=== PATIENT | female | born 1985 | race Caucasian/White ===

== ENCOUNTER 2016-12-24 02:21 | Inpatient (IN) | payer BC ==
[2016-12-24] MEDS ORDERED: METHYLERGONOVINE 0.2 MG/ML 1 ML AMP IM PRN (03:42)
[2016-12-24] MEDS ORDERED: OXYTOCIN 10 UNIT/ML 1 ML VIAL IM PRN (03:42)
[2016-12-24] MEDS ORDERED: CARBOPROST TROMETHAMINE 250 MCG/ML 1 ML AMP IM PRN (03:42)
[2016-12-24] MEDS ORDERED: TERBUTALINE 1 MG/ML VIAL SQ PRN (03:42)
[2016-12-24] MEDS ORDERED: LIDOCAINE 1% (PF) 10 MG/ML (30 ML SDV) SQ PRN (03:42)
[2016-12-24] MEDS: LACTATED RINGERS 1,000 ML IV SCH ×3 (03:55→10:41)
[2016-12-24 04:19] LABS: Basophils % (A) 0 %; CH 29.8; CHCM 33.3; Eosinophils # (A) 0.1 k/uL (0-0.7); Eosinophils % (A) 1 %; HCT 40.8 % (34.0-46.0); HDW 2.67; HGB 13.2 gm/dL (11.4-16.0); Luc # (Auto) 0.09; Luc % (Auto) 1; Lymphocytes # (A) 1.6 k/uL (1.0-4.8); Lymphocytes % (A) 14 %; MCHC 32.3 g/dL (31.0-37.0); MCV 89.9 fL (80.0-100.0); Mean Platelet Volume 7.6; Monocytes # (A) 0.9 k/uL (0-1.0); Monocytes % (A) 7 %; Neutrophils % (A) 77 %; RBC 4.54 m/uL (3.80-5.40); RDW 15.2 % (11.5-15.5); WBC 11.8 k/uL (3.8-10.6); WBC (Perox) 12.57
[2016-12-24] MEDS ORDERED: fentaNYL (PF) 50 MCG/ML 5 ML AMP ONE (04:57)
[2016-12-24] MEDS ORDERED: SODIUM CHLORIDE 0.9% 100 ML BAG ONE (04:57)
[2016-12-24] MEDS ORDERED: BUPIVACAINE (PF) 0.25% 30 ML VIAL ONE (04:57)
[2016-12-24 05:56] VITALS: BMI 31.3
--- NOTE | 2016-12-24 10:23 | P.HPOB ---
History of Present Illness H&P Date: 12/24/16 Chief Complaint: 40 and one sevenths weeks, early active labor The patient is a 31-year-old 1 para 0 admitted at 40 and one sevenths weeks as established by last menstrual period and confirmed by 19 week ultrasound. She is admitted in early active labor with all signs reassuring. Her has been entirely uncomplicated and group B strep status is negative. Obstetrical history: 1 para 0 with current statistics listed in history present illness. EDC of 12/23/2016 was established by last menstrual period and confirmed by 19 week ultrasound. Laboratory workup demonstrates a blood type of A+ with a negative antibody screen. Rubella status is immune. The remainder of her laboratory workup is within normal limits. One hour Glucola is normal and group B strep status is negative. Gynecologic history: Unremarkable with no history of any infections to include STDs. Review of Systems Review of systems is confined to history of present illness. Past Medical History Past Medical History: No Reported History History of Any Multi-Drug Resistant Organisms: None Reported Past Surgical History: No Surgical Hx Reported Past Anesthesia/Blood Transfusion Reactions: No Reported Reaction Past Psychological History: No Psychological Hx Reported Smoking Status: Never smoker Past Alcohol Use History: None Reported Past Drug Use History: None Reported - Past Family History Father Family Medical History: Diabetes Mellitus Medications and Allergies Home Medications Medication Instructions Recorded Confirmed Type No Known Home Medications [No 12/24/16 12/24/16 History Known Home Medications] Allergies Allergy/AdvReac Type Severity Reaction Status Date / Time No Known Allergies Allergy Verified 12/24/16 02:23 Exam - Vital Signs Vital signs: Vital Signs Temp Pulse Resp BP Pulse Ox 12/24/16 03:24 97.6 F 90 18 134/87 98 Intake and Output 12/23/16 12/24/16 12/24/16 22:59 06:59 14:59 Other: # Voids 1 Weight 87.997 kg In general, this is a well-developed, well-nourished white female in no acute distress. Her heart has a regular rhythm and rate without murmur. Her lungs are clear to auscultation bilaterally in all burdick. Her abdomen is gravid, nondistended, has normal active bowel sounds, is soft, nontender, and without any palpable masses aside from the uterine fundus. Her extremities are without any cyanosis, clubbing, or edema and are nontender to palpation bilaterally. Digital cervical examination demonstrates her cervix to be approximate 6-7 cm dilated, 80% effaced, with the vertex in presentation at -2 station. Artificial rupture of membranes is carried out demonstrating clear fluid. Results Result Diagrams: 12/24/16 04:00 Abnormal Lab Results - Last 24 Hours (Table) 12/24/16 Range/Units 04:00 WBC 11.8 H (3.8-10.6) k/uL Neutrophils # 9.0 H (1.3-7.7) k/uL Assessment and Plan (1) Active labor at term Current Visit: Yes Status: Acute Code(s): [id number] - SNOMED Code(s): 50931335 Plan: The patient is admitted for active management of labor. An epidural catheter has been placed for analgesia and she has undergone artificial rupture of membranes. Should she fail to make any significant progress in the next 1-2 hours, Pitocin augmentation will be added. She otherwise will have continued close maternal and surveillance and expectant management will be practiced.
[2016-12-24] MEDS ORDERED: OXYTOCIN 20 UNITS/1000 ML NS 1,000 ML IV SCH ×2 (11:45→16:15)
[2016-12-24] MEDS ORDERED: BUPIVACAINE (PF) 0.25% 25 ML, fentaNYL (PF) 200 MCG in SODIUM CHLORIDE 0.9% 71 ML EPIDURAL ONE (14:12)
[2016-12-24] MEDS ORDERED: BENZOCAINE/MENTHOL SPRAY 1 GM/SPRAY AEROSOL TOPICAL PRN (16:10)
[2016-12-24] MEDS ORDERED: Acetaminophen-Codeine 300-30mg TAB PO PRN ×2 (16:10)
[2016-12-24] MEDS ORDERED: HYDROCORTISONE 2.5% RECTAL CREAM 30 GM TUBE RECTAL PRN (16:10)
[2016-12-24] MEDS ORDERED: WITCH HAZEL 1 EACH MED..PAD TOPICAL PRN (16:10)
[2016-12-24] MEDS ORDERED: LANOLIN CREAM 5 GM TUBE TOPICAL PRN (16:10)
[2016-12-24] MEDS ORDERED: diphenhydrAMINE 50 MG CAP PO PRN (16:10)
[2016-12-24] MEDS ORDERED: ZOLPIDEM 5 MG TAB PO PRN (16:10)
[2016-12-24] MEDS ORDERED: diphenhydrAMINE 25 MG CAP PO PRN (16:10)
[2016-12-24] MEDS ORDERED: diphenhydrAMINE 50 MG/ML 1 ML VIAL IVP PRN ×2 (16:10)
[2016-12-24] MEDS ORDERED: SIMETHICONE 80 MG CHEWABLE PO PRN (16:10)
--- NOTE | 2016-12-24 16:14 | P.PROBDLV ---
Vaginal Delivery Note - . Vaginal Delivery Note: The patient is a 31-year-old 1 para 0 admitted at 40 and one sevenths weeks by good dating parameters. She is admitted in early labor with all signs reassuring. Her has been uncomplicated and group B strep status is negative. On labor and delivery, she labored well on her own to the active phase of labor at which time an epidural catheter was placed for analgesia. She underwent artificial rupture of membranes and then continued to labor steadily until she reached complete. She then pushed for approximately 2 hours to a normal spontaneous vaginal delivery of a viable 9 lbs. 3 oz. AB boy with Apgars of 9 at 1 minute and 9 at 5 minutes delivered in the direct occiput anterior position. The placenta was delivered spontaneously, intact, and grossly normal with a grossly normal, centrally inserted three-vessel cord. A small midline perineal episiotomy had been cut for delivery as it was clear she was going to tear and there was concern for the tear being anteriorly as well as the perineal body being fairly long. Following delivery, inspection of the perineum demonstrated that the anterior capsule of the external anal sphincter had split creating a partial third-degree laceration. The sphincter was repaired with 2 interrupted lokjyj-he-nmewo stitches of 2-0 Vicryl. The remainder of the laceration was repaired in standard fashion using 3-0 chromic catgut without difficulty. Estimated blood loss for the case is approximately 300 mL. There were no complications. All sponge, instrument, and needle counts were correct. There were no complications aside from the partial third- degree extension. Both mother and are resting comfortably in recovery.
[2016-12-24] MEDS: IBUPROFEN 600 MG TAB PO PRN (16:42)
[2016-12-24] MEDS: SENNOSIDES-DOCUSATE SODIUM 1 EACH TAB PO SCH (21:22)
[2016-12-25] MEDS: IBUPROFEN 600 MG TAB PO PRN ×2 (03:31→12:22)
[2016-12-25] MEDS: SENNOSIDES-DOCUSATE SODIUM 1 EACH TAB PO SCH (08:07)
[2016-12-25] MEDS: ACETAMINOPHEN TAB 325 MG TAB PO PRN ×2 (08:28→15:05)
[2016-12-25 08:51] VITALS: RESP 18
--- NOTE | 2016-12-25 11:08 | P.DS ---
Providers Date of admission: 12/24/16 03:40 Expected date of discharge: 12/25/16 Attending physician: Jaime Sarmiento Primary care physician: Stated None - Discharge Diagnosis(es) (1) Active labor at term Current Visit: Yes Status: Acute (2) Normal spontaneous vaginal delivery Current Visit: Yes Status: Acute Hospital Course: The patient is a 31-year-old 1 para 0 admitted at 40 and one sevenths weeks by good dating parameters. She is admitted in early active labor with all signs reassuring. Her was uncomplicated and group B strep status is negative. She made progress through the latent phase of labor and had an epidural placed for analgesia. She underwent artificial rupture of membranes and continued to make steady progress through the active phase ultimately reaching complete and 0 station. She pushed over the course of approximately 2 hours to a normal spontaneous vaginal delivery of a viable 9 lbs. 3 oz. baby boy with Apgars of 9 at 1 minute and 9 at 5 minutes. She did have a partial third-degree laceration which was repaired in standard fashion. Her course was unremarkable with vital signs remaining stable and her temperature was afebrile throughout. She was deemed stable for discharge by day #1 and was discharged home to follow-up in the office in 6 weeks' time routinely. Discharge instructions included calling for any significantly increased bleeding or foul-smelling lochia, significantly increased fever or abdominal pain, perineal complaints, breast complaints, or anything else that concerned her. She was additionally instructed to have nothing in vagina for at least 6 weeks time to include intercourse. She understood her instructions and agrees to follow up as noted above. Discharge medications included only [id number]-pcf-[id number] analgesic pain medications. She has chosen not to breast- feed. Maternal blood type is A+ and rubella status is immune. Procedures: #1. Epidural analgesia #2. Artificial rupture of membranes #3. Pitocin augmentation #4. Normal spontaneous vaginal delivery #5. Repair of partial third-degree laceration Patient Condition at Discharge: Good Plan - Discharge Summary New Discharge Prescriptions: No Action No Known Home Medications [No Known Home Medications] Discharge Medication List No Known Home Medications [No Known Home Medications] 12/24/16 [History] Follow up Appointment(s)/Referral(s): Jaime Sarmiento MD [STAFF PHYSICIAN] - 6 Weeks Discharge Disposition: HOME SELF-CARE
[2016-12-25 15:23] VITALS: BP 108/57; PULSE 76; TEMP 97.4
== END 2016-12-25 16:27 | disposition home or self-care (01) | DRG 775 ==
LOC: FBPOP 02:21 → 4FBP 03:40
PROVIDERS: ADMIT Obstetrics & Gynecology; ATTEND Obstetrics & Gynecology
PROC: 10E0XZZ Delivery of Products of Conception, External Approach (ICD-10-PCS; principal; 2016-12-24)
PROC: 0DQR0ZZ Repair Anal Sphincter, Open Approach (ICD-10-PCS; 2016-12-24)
PROC: 10907ZC Drainage of Amniotic Fluid, Therapeutic from Products of Conception, Via Natural or Artificial Opening (ICD-10-PCS; 2016-12-24)
PROC: 3E033VJ Introduction of Other Hormone into Peripheral Vein, Percutaneous Approach (ICD-10-PCS; 2016-12-24)
PROC: 3E0R3NZ Introduction of Analgesics, Hypnotics, Sedatives into Spinal Canal, Percutaneous Approach (ICD-10-PCS; 2016-12-24)
PROC: 00HU33Z Insertion of Infusion Device into Spinal Canal, Percutaneous Approach (ICD-10-PCS; 2016-12-24)
DX: O48.0 Post-term pregnancy (principal); O70.20 Third degree perineal laceration during delivery, unspecified; K21.9 Gastro-esophageal reflux disease without esophagitis; O99.52 Diseases of the respiratory system complicating childbirth; Z37.0 Single live birth; Z3A.40 40 weeks gestation of pregnancy; Z83.3 Family history of diabetes mellitus
CPT/HCPCS: 59025; 85025; 88307; 99213

== ENCOUNTER → 2017-01-23 | Outpatient (CLI) | payer BC ==
--- NOTE | 2017-01-23 12:35 | CT ---
EXAMINATION TYPE: CT sinus wo con DATE OF EXAM: 01/23/2017 COMPARISON: 06/27/2014 HISTORY: Facial pain and pressure CT DLP: 569 mGycm. Automated Exposure Control for Dose Reduction was Utilized. TECHNIQUE: CT scan of the sinuses is performed without contrast, axial images are obtained, coronal r eformatted images are also reviewed. FINDINGS: The paranasal sinuses including the frontal, ethmoid, sphenoid, and maxillary sinuses bila terally are well-aerated without abnormal opacification. The ostiomeatal complex is patent bilateral ly on the coronal images. Visualized portion of mastoid air cells show no abnormal opacification. The globes are intact bilate rally. Nasal septal deviation noted. IMPRESSION: The sinuses are clear and the ostiomeatal complex is patent bilaterally.
== END | disposition home or self-care (01) ==
LOC: RADCTMAIN 11:56
PROVIDERS: ATTEND Otolaryngology
DX: J32.9 Chronic sinusitis, unspecified (principal)
CPT/HCPCS: 70486

== ENCOUNTER → 2020-07-08 | Outpatient (CLI) | payer BC ==
[2020-07-08 09:05] LABS: Basophils # (A) 0.1 k/uL (0-0.2); Basophils % (A) 1 %; Eosinophils # (A) 0.1 k/uL (0-0.7); Eosinophils % (A) 2 %; HCT 41.3 % (34.0-46.0); HGB 13.7 gm/dL (11.4-16.0); Lymphocytes # (A) 1.6 k/uL (1.0-4.8); Lymphocytes % (A) 25 %; MCH 28.8 pg (25.0-35.0); MCHC 33.2 g/dL (31.0-37.0); MCV 86.9 fL (80.0-100.0); Mean Platelet Volume 6.6; Monocytes # (A) 0.5 k/uL (0-1.0); Monocytes % (A) 8 %; Neutrophils # (A) 4.2 k/uL (1.3-7.7); Neutrophils % (A) 62 %; Platelet Count 327 k/uL (150-450); RBC 4.75 m/uL (3.80-5.40); RDW 12.7 % (11.5-15.5); WBC 6.7 k/uL (3.8-10.6)
== END | disposition home or self-care (01) ==
LOC: LABPAT 07:29
PROVIDERS: ATTEND Obstetrics & Gynecology
DX: Z01.812 Encounter for preprocedural laboratory examination (principal)
CPT/HCPCS: 36415; 85025

== ENCOUNTER 2020-07-20 09:13 | Day surgery (SDC) | payer BC ==
[2020-07-15 14:34] VITALS: BMI 26.6
--- NOTE | 2020-07-16 19:46 | HP ---
HISTORY AND PHYSICAL REASON FOR ADMISSION: Surgery scheduled on July 20, 2020. HISTORY OF PRESENT ILLNESS: The patient is a 35-year-old 1, para 1-0-1, who presents to the office requesting permanent sterilization with bilateral Filshie clips by laparoscopy. She is currently using an oral contraceptive pill and has decided that she would prefer permanent sterilization. She was given options and had a discussion regarding all the other long-term reversible options but instead requests permanent sterilization as above. PAST MEDICAL HISTORY: Significant only for carpal tunnel syndrome. PAST SURGICAL HISTORY: Significant for a cholecystectomy, a LEEP procedure and wisdom teeth extraction. There was no anesthetic concerns. OBSTETRICAL/PHYSICIAN GYNECOLOGIST HISTORY: 1, para 1-0-0-1 with 1 term vaginal delivery without complications. The current method of contraception is oral contraceptive pills. Gynecologic history is unremarkable, though she has had a LEEP procedure in the past for abnormal Pap smears. FAMILY HISTORY: Noncontributory. SOCIAL HISTORY: The patient is and works at the [employer]. She is a nonsmoker and denies any significant alcohol or any other social concerns. CURRENT MEDICATIONS: Include only Ocella oral contraceptive pill daily. ALLERGIES: No known drug allergies. REVIEW OF SYSTEMS: Confined to history of present illness. PHYSICAL EXAMINATION: Vital signs are stable. The patient is afebrile. In general, this is a well-developed, well-nourished white female in no acute distress. Her heart has a regular rhythm and rate without murmur. Her lungs are clear to auscultation bilaterally in all burdick. Her abdomen is nondistended, has normoactive bowel sounds, soft, nontender, without any palpable masses, hepatosplenomegaly, or hernias. Her extremities are without any cyanosis, clubbing, or edema and are nontender to palpation bilaterally. Pelvic examination demonstrates normal external genitalia and BUS with normal vaginal mucosa and cervix. There is no cervical motion tenderness. The uterus is 4-5 weeks in size, mid plane, mobile, nontender, normal in shape. The adnexa are normal and nontender without mass bilaterally. ASSESSMENT AND PLAN: Undesired fertility. The patient has requested laparoscopic bilateral tubal occlusion with Filshie clips. She does understand that there are other long-term reversible methods available but prefers to proceed as above. The risks and complications of the procedure have been thoroughly discussed including the risks for bleeding, bleeding requiring transfusion, infection, and injury to local structures to include the bowel, bladder, and ureters. She has understood all this and agreed to proceed. She additionally understands the permanent nature of the procedure as well as the risk of ectopic should it fail. Surgery scheduled on 07/20/2020. GUALBERTO / SYLVIA: [id number] /
[~2020-07-20 09:13] MED LIST: DEXAMETHASONE SOD PHOSPHATE 4 MG/ML 1 ML VIAL IV ONE; LACTATED RINGERS 1,000 ML IV SCH; LIDOCAINE 1% (10MG/ML) FOR IV START INTRADERMA PRN; MIDAZOLAM 2 MG/2 ML VIAL IV PRN; ONDANSETRON 4 MG/2 ML VIAL IVP ONE; Pre Op ABX Message 1 EACH MISC MISCELLANE ONE
[2020-07-20] MEDS ORDERED: LACTATED RINGERS 1,000 ML IV ONE ×2 (09:43)
[2020-07-20] MEDS ORDERED: fentaNYL (PF) 50 MCG/ML 2 ML AMP ONE (10:52)
[2020-07-20] MEDS ORDERED: SUCCINYLCHOLINE CHLORIDE 100 MG/5 ML SYR IV ONE (10:52)
[2020-07-20] MEDS ORDERED: MIDAZOLAM 2 MG/2 ML VIAL ONE (10:52)
[2020-07-20] MEDS ORDERED: LIDOCAINE 1% INJ 10MG/ML (20 ML MDV) ONE (10:52)
[2020-07-20] MEDS ORDERED: ROCURONIUM 10 MG/ML (5 ML VIAL) IV ONE (10:52)
[2020-07-20] MEDS ORDERED: GLYCOPYRROLATE 0.2 MG/ML 2 ML VIAL ONE (10:52)
[2020-07-20] MEDS ORDERED: PROPOFOL 10 MG/ML 20 ML VIAL IV ONE (10:52)
[2020-07-20] MEDS ORDERED: NEOSTIGMINE 1 MG/ML 10 ML VIAL ONE (10:52)
[2020-07-20] MEDS ORDERED: KETOROLAC 15 MG/ML 1 ML VIAL ONE (10:52)
[2020-07-20] MEDS ORDERED: BUPIVACAINE (PF) 0.5% 30 ML VIAL SQ ONE ×2 (11:17→11:33)
[2020-07-20] MEDS ORDERED: diphenhydrAMINE 50 MG/ML 1 ML VIAL IVP PRN (11:38)
[2020-07-20] MEDS ORDERED: METOCLOPRAMIDE 5 MG/ML 2 ML VIAL IVP PRN (11:38)
[2020-07-20] MEDS ORDERED: KETOROLAC 15 MG/ML 1 ML VIAL IVP PRN (11:38)
[2020-07-20] MEDS ORDERED: SIMETHICONE 80 MG CHEWABLE PO PRN (11:38)
[2020-07-20] MEDS ORDERED: ONDANSETRON 4 MG/2 ML VIAL IVP PRN (11:38)
[2020-07-20] MEDS ORDERED: Acetaminophen-Codeine 300-30mg TAB PO PRN ×2 (11:38)
[2020-07-20] MEDS ORDERED: LACTATED RINGERS 1,000 ML IV SCH (11:45)
--- NOTE | 2020-07-20 11:46 | P.OP ---
Date of Procedure: 07/20/20 Preoperative Diagnosis: #1. Undesired fertility Postoperative Diagnosis: Same Procedure(s) Performed: #1. Laparoscopic bilateral tubal occlusion with Filshie clips Anesthesia: SHERYL Surgeon: Jaime Sarmiento Estimated Blood Loss (ml): 5 IV fluids (ml): 500 Urine output (ml): 40 Pathology: none sent Condition: stable Disposition: PACU Operative Findings: Preoperative pelvic examination demonstrated a 4-5 week retroverted mobile n ormal shaped uterus with normal adnexa bilaterally. Intraoperatively, the uterus was noted to be normal and retroverted as previously noted at preoperative exam. The bilateral tubes and ovaries were entirely normal to inspection with likely a small left ovarian cyst present, possibly ovulatory. The small and large intestine as well as the appendix and liver were entirely normal to inspection. A Filshie clip was placed firmly across the isthmic portion of each fallopian tube. Description of Procedure: The patient was prepped and draped in usual fashion after general endotracheal anesthesia was administered by anesthesiologist. A speculum was placed in the anterior lip of cervix grasped with a signal 2 tenaculum allowing placement of an acorn cannula for manipulation. The bladder was draining approximate 40 mL of clear alee urine. Attention was then turned to the abdomen where a roughly 5 mm incision was made in a vertical fold of the umbilicus allowing insertion of a 5 mm optical trocar under direct vision station without difficulty. A pneumoperitoneum was established and the patient placed in Trendelenburg positioning. A site was selected in the midline approximately 4 cm above the pubic symphysis in the midline where it 8 mm incision was made in the transverse plane allowing insertion of an 8 mm optical trocar under direct vision station without difficulty. The blunt probe was utilized to sweep the bowel from the pelvis and the findings are as noted above. The probe was replaced with a Filshie clip applicator which was used to place a Filshie clip across the right fallopian tube approximately 2-3 cm from the cornu in the isthmic portion where was firmly affixed. The first attempt at placing on the left side failed to occlude the tube and the clip was removed with a grasper without difficulty. A new Filshie clip was then placed and affixed firmly across the entire thickness of the fallopian tube in similar position on the right side. The remainder of the abdomen was examined with the scope and the findings are as noted above. There was no apparent pathology. The entire pneumoperitoneum was evacuated through the 2 ports which were then removed. The skin incisions were closed with interrupted subcuticular stitches of 4-0 Vicryl followed by half-inch to her sugars placed with Mastisol. Each incision was infused with approximately 5 mL of half percent Marcaine without epinephrine. The instruments were then removed from her cervix. Approximate blood loss for the case was 5 mL or less. There were no complications. All sponge, instrument, and needle counts were correct. The patient tolerated the procedure well and proceeded to the recovery room in stable condition.
[2020-07-20] MEDS: HYDROmorphone 0.5 MG/0.5 ML SYRINGE IVP PRN ×2 (11:53→12:04)
[2020-07-20 12:01] VITALS: TEMP 96.8
[2020-07-20] MEDS ORDERED: SCOPOLAMINE 1.5MG/72HR PATCH TRANSDERM ONE (13:35)
[2020-07-20] MEDS ORDERED: METOCLOPRAMIDE 5 MG/ML 2 ML VIAL IVP ONE (14:42)
[2020-07-20 14:44] VITALS: RESP 16
[2020-07-20 15:26] VITALS: BP 99/64; PULSE 84
== END 2020-07-20 15:33 | disposition home or self-care (01) ==
LOC: OR 09:13
PROVIDERS: ATTEND Obstetrics & Gynecology
DX: Z30.2 Encounter for sterilization (principal); G56.00 Carpal tunnel syndrome, unspecified upper limb; Z79.3 Long term (current) use of hormonal contraceptives
CPT/HCPCS: 81025; 58671; J2250; J1100; J2710; J2765; J2405; J2001; J3010; J1885; J0330; J2704; J1170

== ENCOUNTER → 2023-03-17 | Outpatient (CLI) | payer BC ==
[2023-03-17 18:38] LABS: Basophils # (A) 0.06 X 10*3/uL (0.00-0.10); Basophils % (A) 0.9 %; Eosinophils % (A) 1.6 %; HCT 39.7 % (37.2-46.3); Lymphocytes # (A) 2.07 X 10*3/uL (0.90-5.00); Lymphocytes % (A) 32.3 %; MCH 28.7 pg (27.0-32.0); MCHC 32.7 g/dL (32.0-37.0); MCV 87.6 FL (80.0-97.0); Mean Platelet Volume 9.6 FL (9.5-12.2); Monocytes # (A) 0.51 X 10*3/uL (0.20-1.00); NRBC Per 100 WBC 0 X 10*3/uL (0.00-0.01); Neutrophils # (A) 3.64 X 10*3/uL (1.80-7.70); Neutrophils % (A) 56.9 %; Platelet Count 380 X 10*3/uL (140-440); RBC 4.53 X 10*6/uL (4.10-5.20); RDW 13.6 % (11.5-14.5)
[2023-03-20 12:17] LABS: Angiotensin-1 Converting Enz. 27 U/L (8-52)
[2023-03-20 15:30] LABS: C-ANCA <1:20 Titer (<1:20)
== END | disposition home or self-care (01) ==
LOC: LABWHC1 15:43
PROVIDERS: ATTEND Otolaryngology
DX: B99.9 Unspecified infectious disease (principal); R53.83 Other fatigue
CPT/HCPCS: 36415; 82164; 82306; 82784; 85025; 86038; 86255

== ENCOUNTER → 2023-08-07 | Outpatient (CLI) | payer BC ==
--- NOTE | 2023-08-08 10:48 | MM ---
Reason for Exam: Screening (asymptomatic). Patient History: Menarche at age 17. First Full-Term at age 31. Late child-bearing (after 30). Risk Values: Margarita 5 year model risk: 0.5%. NCI Lifetime model risk: 12.6%. Tissue Density: The breasts are heterogeneously dense, which may obscure small masses. Findings: Analyzed By CAD. There is no suspicious group of microcalcifications or new suspicious mass in either breast. Benign-appearing calcifications. Benign-appearing lymph node noted in the left breast upper outer quadrant. Overall Assessment: Benign, BI-RAD 2 Management: Screening Mammogram of both breasts in 1 year. . Patient should continue monthly self-breast exams. A clinical breast exam by your physician is recommended on an annual basis. This exam should not preclude additional follow-up of suspicious palpable abnormalities. Note on Margarita scores and lifetime risk: 1. A Margarita score greater than 3% is considered moderate risk. If this is the case, consider specialist referral to assess eligibility for a risk reducing agent. 2. If overall lifetime risk for the development of breast cancer is 20% or higher, the patient may qualify for future screening with alternating mammogram and breast MRI. Electronically signed and approved by: Priyank Styles M.D. Radiologis
== END | disposition home or self-care (01) ==
LOC: RADMAMWWP 06:57
PROVIDERS: ATTEND Obstetrics & Gynecology
DX: Z12.31 Encounter for screening mammogram for malignant neoplasm of breast (principal)
CPT/HCPCS: 77063; 77067

== ENCOUNTER → 2024-02-08 | Outpatient (CLI) | payer BC ==
--- NOTE | 2024-02-08 12:31 | CT ---
EXAMINATION TYPE: CT sinus wo con DATE OF EXAM: 02/08/2024 COMPARISON: 01/23/2017 CLINICAL INDICATION: Female, 38 years old with history of J01.21 ACUTE RECURRENT ETHMOIDAL SINUSITIS; PHH, ACUTE RECURRENT ETHMOIDAL SINUSITIS TECHNIQUE: CT scan of the sinuses is performed without contrast, axial images are obtained, coronal r eformatted images are also reviewed. CT DLP: 622.[address] CTDI: mGy Automated exposure control for dose reduction was used. FINDINGS: There is moderate mucosal thickening in the maxillary sinuses bilaterally. The remaining paranasal si nuses are well aerated. There are no air-fluid levels to suggest acute sinusitis. The right ostiomeatal complex is patent. The left ostiomeatal complex is obstructed by mucosal inflam mation. The intraorbital contents appear normal. The nasal cavity is intact. The mastoid air cells and middle ear cavities are well aerated. IMPRESSION: 1. Interval development of moderate chronic inflammatory change in the maxillary sinuses, left greate r than right. 2. No acute sinusitis. [facility], , 02/08/2024 12:28 PM
== END | disposition home or self-care (01) ==
LOC: RADCTMAIN 11:43
PROVIDERS: ATTEND Otolaryngology Facial Plastic Surgery
DX: J01.21 Acute recurrent ethmoidal sinusitis (principal)
CPT/HCPCS: 70486

== ENCOUNTER → 2024-08-21 | Outpatient (CLI) | payer BC ==
--- NOTE | 2024-08-21 07:27 | MM ---
Reason for Exam: Screening (asymptomatic). Last screening mammogram was performed 12 month(s) ago. Patient History: Menarche at age 17. First Full-Term at age 31. Late child-bearing (after 30). Last menstrual period: 08/11/2024 Risk Values: Margarita 5 year model risk: 0.6%. NCI Lifetime model risk: 12.6%. Prior Study Comparison: 08/07/2023 Bilateral MG 3D screening mammo w/cad, [facility]. Tissue Density: The breasts are heterogeneously dense, which may obscure small masses. Findings: Analyzed By CAD. There is no suspicious group of microcalcifications or new suspicious mass in either breast. Overall Assessment: Benign, BI-RAD 2 Management: Screening Mammogram of both breasts in 1 year. . Patient should continue monthly self-breast exams. A clinical breast exam by your physician is recommended on an annual basis. This exam should not preclude additional follow-up of suspicious palpable abnormalities. Note on Margarita scores and lifetime risk: 1. A Margarita score greater than 3% is considered moderate risk. If this is the case, consider specialist referral to assess eligibility for a risk reducing agent. 2. If overall lifetime risk for the development of breast cancer is 20% or higher, the patient may qualify for future screening with alternating mammogram and breast MRI. [facility], , 08/21/2024 7:24 AM. Electronically signed and approved by: Fran Aden M.D. Radiologis
== END | disposition home or self-care (01) ==
LOC: RADMAMWWP 06:56
PROVIDERS: ATTEND Obstetrics & Gynecology
DX: Z12.31 Encounter for screening mammogram for malignant neoplasm of breast (principal); R92.333 Mammographic heterogeneous density, bilateral breasts
CPT/HCPCS: 77063; 77067